=== PATIENT | female | born 1975 | race Two or more races ===

== ENCOUNTER 2024-04-17 21:33 | Inpatient (IN) | payer OTHER, SELFPAY ==
[~2024-04-17] VITALS: Ht 170.2 cm; Wt 134.9 kg
[2024-04-17 22:12] LABS: Basophils # (auto) 0.1 10 ^3/uL (0-0.2); Basophils % (auto) 0.5 % (0.0-2.0); Eosinophils # (auto) 0.3 10 ^3/uL (0-0.8); Eosinophils % (auto) 2.1 % (0.0-7.0); Hematocrit 39.3 % (36.0-46.0); Hemoglobin 13.2 g/dL (12.2-16.2); Lymphocytes # (auto) 2.7 10 ^3/uL (0.4-5.4); Mean Corpuscular Hemoglobin 27.1 pg (28.0-32.0); Mean Corpuscular Hgb Conc. 33.7 g/dL (32.0-36.0); Mean Corpuscular Volume 80.5 fL (80.0-100.0); Monocytes # (auto) 0.8 10 ^3/uL (0-1.3); Monocytes % (auto) 6.3 % (0.0-12.0); Neutrophils # (auto) 8.9 10 ^3/uL (1.6-8.6); Neutrophils % (auto) 70.1 % (37.0-80.0); Nucleated Red Blood Cells % 0.1 %; Red Blood Cells 4.88 10^6/uL (4.0-5.20); Red Cell Distribution Width 14.5 % (11.8-14.3); White Blood Cell 12.8 10^3/uL (4.4-10.8)
[2024-04-17 22:19] LABS: Alanine Aminotransferase 23 U/L (7-40); Albumin 4.3 g/dL (3.2-4.8); Alkaline Phosphatase 113 U/L (46-116); Anion Gap 9 (5-15); Aspartate Aminotransferase 14 U/L (13-40); BUN/Creatinine Ratio 10.2 (10.0-20.0); Bilirubin, Total 0.5 mg/dL (0.2-1.0); Blood Urea Nitrogen 9 mg/dL (9-23); Calcium 9.6 mg/dL (8.7-10.4); Carbon Dioxide 23 mmol/L (20-30); Chloride 104 mmol/L (98-107); Glucose 148 mg/dL (74-106); Magnesium 1.8 mg/dL (1.6-2.6); Potassium 3.8 mmol/L (3.5-5.1); Sodium 136 mmol/L (136-145); Total Protein 6.9 g/dL (5.7-8.2)
[2024-04-17 22:33] LABS: INR 1.02 (0.9-1.15); Partial Thromboplastin Time 26.7 SEC (24.5-34.5); Prothrombin Time 10.8 sec (9.3-11.8)
[2024-04-17] MEDS: ONDANSETRON HCL 4 MG/2 ML VIAL IV ONE (23:09)
[2024-04-17] MEDS: ASPirin 325 MG TAB PO ONE (23:10)
[2024-04-17] MEDS: MORPHINE SULFATE 4 MG/ML SYR/VIAL IV ONE (23:10)
[2024-04-17 23:11] VITALS: PULSE 101; RESP 16; O2SAT 97
[2024-04-17] MEDS ORDERED: NITROGLYCERIN 0.4 MG SL TAB SL PRN (23:45)
[2024-04-17] MEDS ORDERED: ONDANSETRON HCL 4 MG/2 ML VIAL IV PRN (23:45)
[2024-04-17] MEDS ORDERED: DOCUSATE SOD 100 MG CAP PO PRN (23:45)
[2024-04-17] MEDS ORDERED: ACETAMINOPHEN 325 MG TAB PO PRN (23:45)
[2024-04-17] MEDS ORDERED: MORPHINE SULFATE INJ 2 MG/ml SYRG IV PRN ×2 (23:45)
[2024-04-18] VITALS (8 sets, daily range): BP systolic 106–118; BP diastolic 65–70; PULSE 68–90; RESP 18–20; TEMP 97.6–98.1; O2SAT 93–100
[2024-04-18] MEDS: SODIUM CHLORIDE 0.9% 1,000 ML IV SCH (00:27)
[2024-04-18] MEDS ORDERED: SEMA2INJ3 SC (03:17)
[2024-04-18] MEDS ORDERED: METF-370 PO (03:17)
[2024-04-18] MEDS ORDERED: CITA40TA12 PO (03:17)
[2024-04-18] MEDS ORDERED: ATOR20TA PO (03:17)
[2024-04-18] MEDS ORDERED: MAGN100C5 PO (03:17)
[2024-04-18] MEDS ORDERED: GLYB5TAB9 PO (03:17)
[2024-04-18] MEDS ORDERED: METO25TA36 PO (03:17)
[2024-04-18] MEDS: HYDROcodone-ACET 5/325MG TAB PO PRN (04:09)
[2024-04-18 07:13] LABS: Basophils # (auto) 0.1 10 ^3/uL (0-0.2); Basophils % (auto) 0.5 % (0.0-2.0); Eosinophils # (auto) 0.2 10 ^3/uL (0-0.8); Eosinophils % (auto) 1.7 % (0.0-7.0); Hematocrit 37.3 % (36.0-46.0); Hemoglobin 12.4 g/dL (12.2-16.2); Lymphocytes # (auto) 1.7 10 ^3/uL (0.4-5.4); Lymphocytes % (auto) 17.1 % (10.0-50.0); Mean Corpuscular Hemoglobin 27.2 pg (28.0-32.0); Mean Corpuscular Hgb Conc. 33.3 g/dL (32.0-36.0); Mean Corpuscular Volume 81.7 fL (80.0-100.0); Monocytes # (auto) 0.8 10 ^3/uL (0-1.3); Monocytes % (auto) 7.7 % (0.0-12.0); Neutrophils # (auto) 7.4 10 ^3/uL (1.6-8.6); Nucleated Red Blood Cells % 0.1 %; Red Blood Cells 4.57 10^6/uL (4.0-5.20); Red Cell Distribution Width 14.6 % (11.8-14.3); White Blood Cell 10.1 10^3/uL (4.4-10.8)
[2024-04-18 07:47] LABS: Alanine Aminotransferase 85 U/L (7-40); Alkaline Phosphatase 124 U/L (46-116); Anion Gap 12 (5-15); BUN/Creatinine Ratio 9.9 (10.0-20.0); Blood Urea Nitrogen 9 mg/dL (9-23); Calcium 9.4 mg/dL (8.7-10.4); Carbon Dioxide 21 mmol/L (20-30); Chloride 104 mmol/L (98-107); Glucose 121 mg/dL (74-106); Potassium 4.3 mmol/L (3.5-5.1); Sodium 137 mmol/L (136-145)
[2024-04-18 07:48] LABS: Albumin 3.9 g/dL (3.2-4.8)
[2024-04-18 07:49] LABS: Aspartate Aminotransferase 104 U/L (13-40); Bilirubin, Total 0.5 mg/dL (0.2-1.0); Total Protein 6.1 g/dL (5.7-8.2)
[2024-04-18] MEDS: ASPirin 81 mg TAB PO SCH (09:34)
[2024-04-18] MEDS: FAMOTIDINE (10MG/ML) 2ML VL IV SCH (09:35)
[2024-04-18] MEDS ORDERED: ATORVASTATIN 20 MG TAB PO SCH (22:00)
== END 2024-04-18 17:50 | disposition home or self-care (01) | DRG 206 ==
LOC: ER 21:33 → TELE-WESTW 23:46 → TELE 23:46 → TELE-WESTW 04-18 03:03
PROVIDERS: ADMIT Nurse Practitioner Family; ATTEND Nurse Practitioner Family
DX: M94.0 Chondrocostal junction syndrome [Tietze] (principal); Z68.42 Body mass index [BMI] 45.0-49.9, adult; D72.829 Elevated white blood cell count, unspecified; E66.01 Morbid (severe) obesity due to excess calories; E11.9 Type 2 diabetes mellitus without complications; Z90.49 Acquired absence of other specified parts of digestive tract; Z90.710 Acquired absence of both cervix and uterus; Z91.010 Allergy to peanuts; Z79.4 Long term (current) use of insulin
CPT/HCPCS: 36415; 71045; 80053; 83735; 83880; 84484; 85025; 85610; 85730; 93005; 96374; 96375; G0378; J2405; J3490

== ENCOUNTER 2024-10-22 19:14 | Emergency (ER) | payer SELFPAY ==
[~2024-10-22] VITALS: Ht 170.2 cm; Wt 125.0 kg
[~2024-10-22 19:14] MED LIST: ATOR20TA PO; CITA40TA12 PO; GLYB5TAB9 PO; MAGN100C5 PO; METF-370 PO; METO25TA36 PO; SEMA2INJ3 SC
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
[2024-10-22 20:19] VITALS: BP 132/86; PULSE 100; RESP 18; TEMP 98.6; O2SAT 94
[2024-10-22] MEDS: ONDANSETRON ODT 4 MG TAB PO ONE (20:26)
[2024-10-22] MEDS: OXYCODONE W/ ACETAMINOPHEN 5/325MG TABLET PO ONE (20:27)
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
[2024-10-22] MEDS: SODIUM CHLORIDE 0.9% 1,000 ML IV ONE (20:58)
[2024-10-22] MEDS: ACETAMINOPHEN 500 MG TAB or CAP PO ONE (21:06)
[2024-10-22] MEDS: KETOROLAC TROMETH 30 MG/ML 1ML VIAL IV ONE (21:18)
[2024-10-22] MEDS: METOCLOPRAMIDE HCL 5MG/ml INJ 2ml VIAL IV ONE (21:18)
== END 2024-10-22 22:11 | disposition home or self-care (01) ==
LOC: ER 19:14 → EDBD 19:14 → ER 22:11
DX: S13.4XXA Sprain of ligaments of cervical spine, initial encounter (principal); G44.319 Acute post-traumatic headache, not intractable; R11.2 Nausea with vomiting, unspecified; R42 Dizziness and giddiness; E23.6 Other disorders of pituitary gland; Z91.010 Allergy to peanuts; Z90.710 Acquired absence of both cervix and uterus; Z90.49 Acquired absence of other specified parts of digestive tract; Z91.040 Latex allergy status; Z88.1 Allergy status to other antibiotic agents; V49.40XA Driver injured in collision with unspecified motor vehicles in traffic accident, initial encounter; Y93.89 Activity, other specified; Y92.410 Unspecified street and highway as the place of occurrence of the external cause; Y99.8 Other external cause status
CPT/HCPCS: 70450; 72125; 96360; 99284; J1885; J2765; J7030; Q0162